=== PATIENT | female | born 1985 | race Caucasian/White ===

== ENCOUNTER 2016-08-30 21:01 | Emergency (ER) | payer SELFPAY ==
[2016-08-30 21:23] VITALS: BP 130/98
[2016-08-30 21:51] LABS: Basophils % (Auto) 0.5 % (0.0-1.8); Eosinophils % (Auto) 1.6 % (0.0-4.3); Hematocrit 38.3 % (30.3-42.9); Hemoglobin 12.6 gm/dl (10.1-14.3); Mean Corpuscular HGB Conc 33 % (30-34); Mean Corpuscular Hemoglobin 29 pg (28-32); Mean Corpuscular Volume 88 fl (79-97); Platelet Count 205 K/mm3 (140-440); Red Blood Count 4.34 M/mm3 (3.65-5.03); White Blood Count 7.1 K/mm3 (4.5-11.0)
[2016-08-30 22:11] LABS: Alanine Aminotransferase 12 units/L (7-56); Albumin 4.1 g/dL (3.9-5); Albumin/Globulin Ratio 1.4 %; Alkaline Phosphatase 71 units/L (35-129); Anion Gap 13 mmol/L; Bilirubin,Total < 0.2 mg/dL (0.1-1.2); Blood Urea Nitrogen 10 mg/dL (7-17); Calcium 8.7 mg/dL (8.4-10.2); Carbon Dioxide 27 mmol/L (22-30); Chloride 102.9 mmol/L (98-107); Glucose 97 mg/dL (65-100); Lipase 74 units/L (13-60); Potassium 4.3 mmol/L (3.6-5.0); Sodium 139 mmol/L (137-145); Total Protein 7.1 g/dL (6.3-8.2)
[2016-08-30 23:44] LABS: Bilirubin,Urine NEG (Negative); Blood,Urine SM (Negative); Ketones,Urine NEG (Negative); Leukocyte Esterase,Urine MOD (Negative); Mucus,Urine 1+ /HPF; Nitrite,Urine POS (Negative); Protein,Urine <15 mg/dL mg/dL (Negative); Urobilinogen,Urine < 2.0 mg/dL (<2.0)
--- NOTE | 2016-09-03 01:31 | ED Elopement Review ---
ED Pt Elopement review - Results review Lab results: Laboratory Tests 08/30/16 08/30/16 08/30/16 21:36 21:36 21:36 WBC 7.1 RBC 4.34 Hgb 12.6 Hct 38.3 MCV 88 MCH 29 MCHC 33 RDW 14.0 Plt Count 205 Lymph % (Auto) 39.6 H [place] % (Auto) 6.6 Eos % (Auto) 1.6 Baso % (Auto) 0.5 Lymph # 2.8 [place] # 0.5 Eos # 0.1 Baso # 0.0 Seg Neutrophils % 51.7 Seg Neutrophils # 3.7 Sodium 139 Potassium 4.3 Chloride 102.9 Carbon Dioxide 27 Anion Gap 13 BUN 10 Creatinine 0.8 Estimated GFR > 60 BUN/Creatinine Ratio 12.50 Glucose 97 Calcium 8.7 Total Bilirubin < 0.2 AST 14 ALT 12 Alkaline Phosphatase 71 Total Protein 7.1 Albumin 4.1 Albumin/Globulin Ratio 1.4 Lipase 74 H HCG, Qual Negative Urine Color Urine Turbidity Urine pH Ur Specific Temple Urine Protein Urine Glucose (UA) Urine Ketones Urine Blood Urine Nitrite Urine Bilirubin Urine Urobilinogen Ur Leukocyte Esterase Urine WBC (Auto) Urine RBC (Auto) U Epithel Cells (Auto) Urine Mucus 08/30/16 Unknown WBC RBC Hgb Hct MCV MCH MCHC RDW Plt Count Lymph % (Auto) [place] % (Auto) Eos % (Auto) Baso % (Auto) Lymph # [place] # Eos # Baso # Seg Neutrophils % Seg Neutrophils # Sodium Potassium Chloride Carbon Dioxide Anion Gap BUN Creatinine Estimated GFR BUN/Creatinine Ratio Glucose Calcium Total Bilirubin AST ALT Alkaline Phosphatase Total Protein Albumin Albumin/Globulin Ratio Lipase HCG, Qual Urine Color Yellow Urine Turbidity Cloudy Urine pH 7.0 Ur Specific Temple 1.017 Urine Protein <15 mg/dl Urine Glucose (UA) Neg Urine Ketones Neg Urine Blood Sm Urine Nitrite Pos Urine Bilirubin Neg Urine Urobilinogen < 2.0 Ur Leukocyte Esterase Mod Urine WBC (Auto) 51.0 H Urine RBC (Auto) 5.0 U Epithel Cells (Auto) 5.0 Urine Mucus 1+ - Call Back decision Pt Call Back Decision: Pt to F/U with PMD
== END 2016-08-31 03:51 | disposition left against medical advice (07) ==
LOC: ED 21:01
DX: R10.9 Unspecified abdominal pain (principal); Z53.21 Procedure and treatment not carried out due to patient leaving prior to being seen by health care provider
CPT/HCPCS: 36415; 80053; 81001; 83690; 84703; 85025

== ENCOUNTER 2021-11-12 10:40 | Inpatient (IN) | payer MEDICAID ==
[2021-11-12] MEDS ORDERED: OXYTOCIN 10 UNIT/1 ML INJ IM PRN (11:25)
[2021-11-12] MEDS ORDERED: LIDOCAINE (2%) 20 MG/1 ML VIAL 20 ML MDV INFILTRATI ONE (11:25)
[2021-11-12] MEDS ORDERED: LOPERAMIDE 2 MG CAP PO PRN (11:25)
[2021-11-12] MEDS ORDERED: miSOPROStol 200 MCG TAB PR PRN (11:25)
[2021-11-12] MEDS ORDERED: METHYLERGONOVINE MALEATE 0.2 MG/ML VIAL IM PRN (11:25)
[2021-11-12] MEDS ORDERED: CARBOPROST TROMETHAMINE 250 MCG/1 ML INJ IM PRN (11:25)
[2021-11-12] MEDS ORDERED: fentaNYL 100 MCG/2 ML INJ IV PRN ×2 (11:30→16:37)
[2021-11-12] MEDS ORDERED: ePHEDrine SULFATE 50 MG/1 ML INJ IV PRN (11:30)
[2021-11-12] MEDS ORDERED: TERBUTALINE 1 MG/1 ML INJ SUB-Q PRN (11:30)
--- NOTE | 2021-11-12 11:38 | History and Physical Report ---
History of Present Illness Date of examination: 11/12/21 Date of admission: 11/12/2021 Chief complaint: Labor Pains; My water broke at 0900 this morning History of present illness: No care; state she had a ER visit @ [place] and had a ultrasound that dates her at 29 3/7 Past History Past Medical History: no pertinent history Past Surgical History: no surgical history Social history: no significant social history - Obstetrical History : 6 Para: 4 Hx # Term Pregnancies: 4 Induced : 1 Number of Living Children: 4 Medications and Allergies Allergies Allergy/AdvReac Type Severity Reaction Status Date / Time No Known Allergies Allergy Verified 08/30/16 21:19 Active Meds: Active Medications Carboprost Tromethamine (Carboprost Tromethamine 250 Mcg/1 Ml Inj) 250 mcg IM ONCE PRN PRN Reason: Uterine Bleeding Ephedrine Sulfate (Ephedrine Sulfate 50 Mg/1 Ml Inj) 10 mg IV Q2M PRN PRN Reason: Hypotension Fentanyl (Fentanyl 100 Mcg/2 Ml Inj) 100 mcg IV Q2H PRN PRN Reason: Pain,Severe (7-10) LABOR PAIN Oxytocin/Sodium Chloride (Pitocin/Ns 30 Unit/500ml) 30 units in 500 mls @ 2 mls/hr IV TITR JENNIFER; Protocol Lactated Ringer's (Lactated Ringers) 1,000 mls @ 125 mls/hr IV DIRECT JENNIFER Oxytocin/Sodium Chloride (Pitocin/Ns 30 Unit/500ml) 30 units in 500 mls @ 40 mls/hr IV TITR JENNIFER; Protocol Ibuprofen (Ibuprofen 800 Mg Tab) 800 mg PO Q8H PRN PRN Reason: Pain, Mild (1-3) Lidocaine (Lidocaine (2%) 20 Mg/1 Ml Vial 20 Ml Mdv) 20 ml INFILTRATI ONCE ONE Stop: 11/12/21 11:26 Loperamide HCl (Loperamide 2 Mg Cap) 2 mg PO ONCE PRN PRN Reason: give with Hemabate Methylergonovine Maleate (Methylergonovine Maleate 0.2 Mg/Ml Vial) 0.2 mg IM ONCE PRN PRN Reason: Uterine Bleeding Misoprostol (Misoprostol 200 Mcg Tab) 800 mcg WA ONCE PRN PRN Reason: Uterine Bleeding Oxytocin (Oxytocin 10 Unit/1 Ml Inj) 10 unit IM ONCE PRN PRN Reason: Uterine Bleeding Terbutaline Sulfate (Terbutaline 1 Mg/1 Ml Inj) 0.25 mg SUB-Q ONCE PRN PRN Reason: Hyperstimulation/Hypertonicity Review of Systems All systems: negative - Vital Signs Vital signs: Vital Signs Pulse Pulse Ox 110 H 99 11/12/21 11:04 11/12/21 11:04 Temp Pulse Resp BP Pulse Ox 77 125/68 100 11/12/21 11:29 11/12/21 11:25 11/12/21 11:29 - Physical Exam Breasts: Positive: normal Cardiovascular: Regular rate Lungs: Positive: Clear to auscultation, Normal air movement Abdomen: Positive: normal appearance, soft, normal bowel sounds Genitourinary (Female): Positive: normal external genitalia, normal perenium Vagina: Positive: other Uterus: Positive: enlarged Anus/Rectum: Positive: normal perianal skin - Obstetrical FHR: auscultation normal Uterine Contraction Monitor Mode: External Cervical Dilatation: 9 (leaking a copious amount of thick green meconium stained fluids) Cervical Effacement Percentage: 100 station: 0 Uterine Contraction Pattern: Regular Uterine Tone Measurement Phase: Contraction Uterine Contraction Intensity: Strong/Firm Results All other labs normal. Assessment and Plan A: IUP: Gestational age unknown SROM Active Labor No Care AMA P: Admit to L&D Per Routine Orders Walk-In Labs Anticipate
--- NOTE | 2021-11-12 11:47 | Procedure Note ---
OB Delivery Note - Delivery Date of Delivery: 11/12/21 Surgeon: BARBARA NEWSOME Estimated blood loss: 200cc - Vaginal Delivery presentation: vertex Delivery position: OA Intrapartum events: no care, meconium, precipitous labor- <3hr Delivery induction: none Delivery monitor: external FHT, external uterine Route of delivery: Delivery placenta: spontaneous Delivery cord: 3 umbilical vessels Episiotomy: none Delivery laceration: none Anesthesia: none Delivery comments: Precipitous vaginal delivery of a live female infant @ 1107 on 11/12/2021 over a intact perineum without pain control. Cord clamped and cut by PRAKASH Newsome and handed directly to awaiting NICU/RESP team due to thick meconum stained fluids and unknown gestational age. Spontaneous delivery of placenta complete and intact with Zarate side presenting at 1112. Fundus is firm and midline located 5 below the U; Lochia is scant. Cord blood collected; Placenta to pathology. - A Gender: Female (Apgars and weight unavailable; Infant transferred to NICU)
[2021-11-12] MEDS ORDERED: WITCH HAZEL/ GLYCERIN PAD TP PRN (12:00)
[2021-11-12] MEDS ORDERED: diphenhydrAMINE 25 MG CAP PO PRN (12:00)
[2021-11-12] MEDS ORDERED: ACETAMINOPHEN 500 MG TAB PO PRN (12:00)
[2021-11-12] MEDS ORDERED: OXYTOCIN DRIP 30 UNITS/500 ML BAG IV SCH ×2 (12:00)
[2021-11-12] MEDS ORDERED: LANOLIN/ZINC/DIMETHICONE (LANSINOH) 7 GM TP PRN (12:00)
[2021-11-12] MEDS ORDERED: LACTATED RINGERS 1,000 ML IV SCH (12:00)
[2021-11-12] MEDS ORDERED: IBUPROFEN 800 MG TAB PO PRN (12:00)
[2021-11-12 12:43] LABS: Basophils % (Auto) 0.3 % (0.0-1.8); Eosinophils # (Auto) 0.1 K/mm3 (0.0-0.4); Eosinophils % (Auto) 0.9 % (0.0-4.3); Hematocrit 26.9 % (30.3-42.9); Hemoglobin 8.5 gm/dl (10.1-14.3); Lymphocytes # (Auto) 1.4 K/mm3 (1.2-5.4); Lymphocytes % (Auto) 15.1 % (13.4-35.0); Mean Corpuscular HGB Conc 32 % (30-34); Monocytes # (Auto) 0.4 K/mm3 (0.0-0.8); Monocytes % (Auto) 4.7 % (0.0-7.3); Platelet Count 201 K/mm3 (140-440); Red Blood Count 3.88 M/mm3 (3.65-5.03); Red Cell Distribution Width 19.1 % (13.2-15.2)
[2021-11-12 12:53] LABS: Mean Corpuscular Volume 69 fl (79-97)
[2021-11-12] MEDS: HYDROcodone/ACETAMINOPHEN 5-325 MG TAB PO PRN ×2 (12:55→21:19)
[2021-11-12 13:41] LABS: Hepatitis C Virus Antibody Non-Reactive (NonReactive)
[2021-11-12 14:12] LABS: Amphetamine Screen,Urine Negative; Benzodiazepines Screen,Urine Negative; Cocaine Screen,Urine Negative; Methadone Screen,Urine Negative; Opiate Screen,Urine Negative
[2021-11-12 14:54] LABS: Cannabinoid Screen,Urine Positive
[2021-11-12] MEDS ORDERED: NalbUPHINE 10 MG/1 ML INJ IV PRN (16:37)
[2021-11-12] MEDS ORDERED: BUTORPHANOL 2 MG/1 ML INJ IV PRN (16:37)
[2021-11-12 23:48] LABS: Hematocrit 24.6 % (30.3-42.9); Hemoglobin 7.8 gm/dl (10.1-14.3)
[2021-11-13] MEDS: PRENATAL VIT27-FE FUMARATE-FOLIC ACID VIT TAB PO SCH (10:30)
[2021-11-13] MEDS: HYDROcodone/ACETAMINOPHEN 5-325 MG TAB PO PRN ×2 (10:30→16:17)
[2021-11-13] MEDS ORDERED: MEASLES, MUMPS & RUBELLA 12,500 UNIT/0.5 ML VACCINE SUB-Q ONE (11:29)
[2021-11-13] MEDS ORDERED: TETANUS,DIPH,PERTUSS(ACELL) VACCINE 0.5 ML SYRINGE IM ONE (11:30)
--- NOTE | 2021-11-13 12:58 | Progress Note ---
Assessment and Plan PPD#1 with asymp anemia 1. Repeat CBC and give iron supplement and vitamin C 2. Routine PP care and discharge home in am if pt remains stable all questions encouraged and answered Subjective Date of service: 11/13/21 Principal diagnosis: PPD#1 with severe anemia, asymptomatic Interval history: pt has no complaints and has gone to NICU to visit her baby. Pt states her pain improved with pain med. Vag bleed less than a period. pt is bottle feeding only. Denies SOB, chest pain or palpitations Objective - Constitutional Vitals: Vital Signs - 12hr 11/13/21 11/13/21 11/13/21 10:00 10:25 10:30 Temperature 97.5 F L Pulse Rate 81 Respiratory 18 16 Rate Blood Pressure 124/82 [Right] O2 Sat by Pulse 100 Oximetry O2 Sat by Pulse 100 Oximetry [ Bilateral Throughout] General appearance: Present: no acute distress - Neck Neck: normal ROM - Respiratory Respiratory effort: normal - Breasts Breasts: deferred - Cardiovascular Rhythm: regular Extremities: No edema - Gastrointestinal General gastrointestinal: Present: soft, non-tender - Genitourinary Female genitourinary: other (Fundus firm, 1cm below umbilicus; non-tender) - Neurologic Neurologic: moves all extremities - Psychiatric Psychiatric: cooperative - Labs CBC & Chem 7: 11/12/21 23:23 Labs: Abnormal lab results 11/12/21 Range/Units 23:23 Hgb 7.8 L (10.1-14.3) gm/dl Hct 24.6 L (30.3-42.9) % Medications & Allergies - Medications Allergies/Adverse Reactions: Allergies No Known Allergies Allergy (Verified 08/30/16 21:19) Home Medications: Home Medications Medication Instructions Recorded Confirmed Last Taken Type No Known Home Medications [No 11/12/21 11/12/21 Unknown History Reported Home Medications] Active Medications: Generic Name Dose Route Start Last Admin Trade Name Freq PRN Reason Stop Dose Admin Acetaminophen 500 mg 11/12/21 12:00 Acetaminophen 500 Mg Tab PO Q6H PRN Pain, Mild (1-3) Hydrocodone Bitart/Acetaminophen 2 each 11/12/21 12:00 11/13/21 10:30 Hydrocodone/Acetaminophen 5-325 Mg Tab PO 2 each Q6H PRN Administration Pain, Moderate (4-6) Bisacodyl 10 mg 11/12/21 12:00 Bisacodyl 10 Mg Rect Supp [place] BID PRN Constipation Butorphanol Tartrate 1 mg 11/12/21 16:37 Butorphanol 2 Mg/1 Ml Inj IV Q2H PRN Pain, Moderate(4-6) LABOR PAIN Diphenhydramine HCl 25 mg 11/12/21 12:00 Diphenhydramine 25 Mg Cap PO Q6H PRN Itching Fentanyl 100 mcg 11/12/21 16:37 Fentanyl 100 Mcg/2 Ml Inj IV Q2H PRN Pain,Severe (7-10) LABOR PAIN Multi-Ingredient Ointment 1 applic 11/12/21 12:00 Lanolin/Zinc/Dimethicone (Lansinoh) 7 Gm TP PRN PRN Sore Nipples Multivitamins/Iron/Calcium 1 each 11/13/21 10:00 11/13/21 10:30 [id number] Fumarate-Folic Acid Vit Tab PO 1 each QDAY JENNIFER Administration Nalbuphine HCl 10 mg 11/12/21 16:37 Nalbuphine 10 Mg/1 Ml Inj IV Q2H PRN Pain, Moderate (4-6) Sodium Chloride 10 ml 11/12/21 12:00 Sodium Chloride 0.9% 10 Ml Flush Syringe IV 11/24/21 11:59 PRN NR Witch Swapna/Glycerin 1 each 11/12/21 12:00 Witch Swapna/ Glycerin Pad TP PRN PRN Hemorrhoid/cleansing/soothing
[2021-11-13 14:25] LABS: Basophils % (Auto) 0.3 % (0.0-1.8); Eosinophils # (Auto) 0.1 K/mm3 (0.0-0.4); Eosinophils % (Auto) 0.8 % (0.0-4.3); Hematocrit 24.5 % (30.3-42.9); Hemoglobin 7.7 gm/dl (10.1-14.3); Lymphocytes # (Auto) 2.4 K/mm3 (1.2-5.4); Lymphocytes % (Auto) 29.3 % (13.4-35.0); Mean Corpuscular HGB Conc 32 % (30-34); Monocytes # (Auto) 0.4 K/mm3 (0.0-0.8); Monocytes % (Auto) 5.2 % (0.0-7.3); Platelet Count 184 K/mm3 (140-440); Red Blood Count 3.54 M/mm3 (3.65-5.03)
[2021-11-13 14:32] LABS: Mean Corpuscular Volume 69 fl (79-97)
[2021-11-13] MEDS: ASCORBIC ACID 500 MG TAB PO SCH ×2 (16:17→21:21)
[2021-11-13] MEDS: FERROUS SULFATE 325 MG TAB PO SCH ×2 (16:17→21:14)
[2021-11-13] MEDS: DOCUSATE SODIUM 100 MG CAP PO SCH (21:14)
[2021-11-14 08:49] VITALS: BP 125/72
--- NOTE | 2021-11-14 09:33 | Progress Note ---
Assessment and Plan PPD#2 doing well 1. Discharge pt home later today. Subjective Date of service: 11/14/21 Principal diagnosis: PPD#2 with severe anemia, asymptomatic Interval history: pt has no complaints and desires to go home today. pt has visited baby multiple times in the NICU Objective - Constitutional Vitals: Vital Signs - 12hr 11/14/21 11/14/21 00:30 07:19 Temperature 98.2 F 98.1 F Pulse Rate 75 76 Respiratory 20 20 Rate Blood Pressure 125/72 Blood Pressure 127/81 [Right] O2 Sat by Pulse 99 100 Oximetry General appearance: Present: no acute distress - Respiratory Respiratory effort: normal - Breasts Breasts: deferred Extremities: No edema - Gastrointestinal General gastrointestinal: Present: soft, non-tender - Genitourinary Female genitourinary: other (Fundus firm 1cm below umbilicus. Lochia small) - Neurologic Neurologic: moves all extremities - Psychiatric Psychiatric: cooperative - Labs CBC & Chem 7: 11/13/21 13:34 Labs: Abnormal lab results 11/13/21 Range/Units 13:34 RBC 3.54 L (3.65-5.03) M/mm3 Hgb 7.7 L (10.1-14.3) gm/dl Hct 24.5 L (30.3-42.9) % MCV 69 L (79-97) fl MCH 22 L (28-32) pg RDW 19.0 H (13.2-15.2) % Medications & Allergies - Medications Allergies/Adverse Reactions: Allergies No Known Allergies Allergy (Verified 08/30/16 21:19) Home Medications: Home Medications Medication Instructions Recorded Confirmed Last Taken Type Ascorbic Acid [Vitamin C] 500 mg PO Q12H 30 Days #60 tablet 11/13/21 Unknown Rx Ferrous Sulfate [Ferrous Sulfate 324 mg PO BID 30 Days #60 11/13/21 Unknown Rx 324 MG] Ibuprofen [Motrin] 800 mg PO Q8HR PRN 21 Days #40 11/13/21 Unknown Rx tablet Active Medications: Generic Name Dose Route Start Last Admin Trade Name Freq PRN Reason Stop Dose Admin Acetaminophen 500 mg 11/12/21 12:00 Acetaminophen 500 Mg Tab PO Q6H PRN Pain, Mild (1-3) Hydrocodone Bitart/Acetaminophen 2 each 11/12/21 12:00 11/13/21 16:17 Hydrocodone/Acetaminophen 5-325 Mg Tab PO 2 each Q6H PRN Administration Pain, Moderate (4-6) Ascorbic Acid 500 mg 11/13/21 12:59 11/13/21 21:21 Ascorbic Acid 500 Mg Tab PO 500 mg BID JENNIFER Administration Bisacodyl 10 mg 11/12/21 12:00 Bisacodyl 10 Mg Rect Supp [place] BID PRN Constipation Butorphanol Tartrate 1 mg 11/12/21 16:37 Butorphanol 2 Mg/1 Ml Inj IV Q2H PRN Pain, Moderate(4-6) LABOR PAIN Diphenhydramine HCl 25 mg 11/12/21 12:00 Diphenhydramine 25 Mg Cap PO Q6H PRN Itching Docusate Sodium 100 mg 11/13/21 22:00 11/13/21 21:14 Docusate Sodium 100 Mg Cap PO 100 mg BID JENNIFER Administration Fentanyl 100 mcg 11/12/21 16:37 Fentanyl 100 Mcg/2 Ml Inj IV Q2H PRN Pain,Severe (7-10) LABOR PAIN Ferrous Sulfate 325 mg 11/13/21 12:59 11/13/21 21:14 Ferrous Sulfate 325 Mg Tab PO 325 mg BID JENNIFER Administration Multi-Ingredient Ointment 1 applic 11/12/21 12:00 Lanolin/Zinc/Dimethicone (Lansinoh) 7 Gm TP PRN PRN Sore Nipples Multivitamins/Iron/Calcium 1 each 11/13/21 10:00 11/13/21 10:30 [id number] Fumarate-Folic Acid Vit Tab PO 1 each QDAY JENNIFER Administration Nalbuphine HCl 10 mg 11/12/21 16:37 Nalbuphine 10 Mg/1 Ml Inj IV Q2H PRN Pain, Moderate (4-6) Sodium Chloride 10 ml 11/12/21 12:00 Sodium Chloride 0.9% 10 Ml Flush Syringe IV 11/24/21 11:59 PRN NR Witch Swapna/Glycerin 1 each 11/12/21 12:00 Witch Swapna/ Glycerin Pad TP PRN PRN Hemorrhoid/cleansing/soothing
[2021-11-14] MEDS: ASCORBIC ACID 500 MG TAB PO SCH (10:35)
[2021-11-14] MEDS: PRENATAL VIT27-FE FUMARATE-FOLIC ACID VIT TAB PO SCH (10:35)
[2021-11-14] MEDS: FERROUS SULFATE 325 MG TAB PO SCH (10:35)
[2021-11-14] MEDS: DOCUSATE SODIUM 100 MG CAP PO SCH (10:35)
--- NOTE | 2021-11-14 19:38 | Discharge Summary ---
Providers - Providers Date of Admission: 11/12/21 11:56 Date of discharge: 11/14/21 Attending physician: SEBASTIAN NAILS 11/14/21 07:47 Consult to Case Management [CONS] Routine Services Needed at Discharge: Business Improvement Manager Notified:: [id number] Additional Physician Instructions: positive for THC no PNC Primary care physician: MARCO WHITMAN Hospitalization Reason for admission: other ( with meconium stained fluid, unknown dates, no care) Episiotomy: none Laceration: none complications: none Discharge diagnosis: other (Gestational age presumed by NICU, baby with meconium stained fluid and in nicu) [place] baby: female Hospital course: preg with unknown dates and SROM with meconium stained fluid and precipitous delivery with baby in the NICU. care uneventful. Pt remained with asymptomatic anemia post delivery. Condition at discharge: Good Disposition: 01 HOME / SELF CARE / HOMELESS Plan - Discharge Medications Prescriptions: Ferrous Sulfate [Ferrous Sulfate 324 MG] 324 mg PO BID 30 Days #60 Ibuprofen [Motrin] 800 mg PO Q8HR PRN 21 Days #40 tablet PRN Reason: Pain, Moderate (4-6) Ascorbic Acid [Vitamin C] 500 mg PO Q12H 30 Days #60 tablet - Provider Discharge Summary Additional instructions: [] Smoking cessation referral if applicable(refer to patient education folder for contact #) [] Refer to [facility]'s [facility] Booklet Call your doctor immediately for: * Fever > 100.5 * Heavy vaginal bleeding ( >1 pad per hour) * Severe persistent headache * Shortness of breath * Reddened, hot, painful area to leg or breast * Drainage or odor from incision. * Keep incision clean and dry at all times and follow doctor's instructions regarding bathing/showering - Follow up plan Follow up: MARCO WHITMAN MD [Primary Care Provider] - 7 Days Forms: [facility] Discharge Summary, Discharge Signature Page
== END 2021-11-14 11:05 | disposition home or self-care (01) | DRG 775 ==
LOC: TRG 10:40 → LD 11:04 → TRG 11:55 → LD 11:56 → OB 13:37
PROVIDERS: ADMIT Obstetrics & Gynecology; ATTEND Obstetrics & Gynecology
PROC: 10E0XZZ Delivery of Products of Conception, External Approach (ICD-10-PCS; principal; 2021-11-12)
PROC: 3E0234Z Introduction of Serum, Toxoid and Vaccine into Muscle, Percutaneous Approach (ICD-10-PCS; 2021-11-13)
PROC: 3E0134Z Introduction of Serum, Toxoid and Vaccine into Subcutaneous Tissue, Percutaneous Approach (ICD-10-PCS; 2021-11-13)
DX: O60.14X0 Preterm labor third trimester with preterm delivery third trimester, not applicable or unspecified (principal); Z20.822 Contact with and (suspected) exposure to COVID-19; O62.3 Precipitate labor; O77.0 Labor and delivery complicated by meconium in amniotic fluid; Z3A.36 36 weeks gestation of pregnancy; Z37.0 Single live birth; O90.81 Anemia of the puerperium; Z23 Encounter for immunization
CPT/HCPCS: 36415; 80307; 85014; 85018; 85025; 86592; 86706; 86762; 86803; 86850; 86900; 86901; 87806; 88307; G0378; J2590; U0003

== ENCOUNTER 2021-11-25 15:57 | Emergency (ER) | payer MEDICAID ==
[2021-11-25] MEDS ORDERED: ONDANSETRON 4 MG/2 ML INJ IV ONE (16:17)
--- NOTE | 2021-11-25 16:36 | Emergency Department Report ---
ED General Adult HPI - General Chief complaint: Seizure Stated complaint: SEIZURE PUI?: No Time Seen by Provider: 11/25/21 16:09 Source: patient, EMS Mode of arrival: Stretcher Limitations: No Limitations - History of Present Illness Initial comments: This is a 36-year-old female with no past medical history recently delivered on November 12 brought in by EMS with concerns of 2 episodes of tonic clonic seizures; no medication was given well on route. On arrival patient was confused and postictal state with the patient being agitated; 1 mg Ativan was given. During my evaluation patient is aware that she is in the hospital but was too drowsy for me to ask any additional questions. Patient denies any discomfort. Looking through the entire [facility] [facility] vital signs I do not see any blood pressure greater than 140/190 therefore I highly doubt this is preeclampsia or eclampsic seizure. - Related Data Previous Rx's Medication Instructions Recorded Last Taken Type Ascorbic Acid [Vitamin C] 500 mg PO Q12H 30 Days #60 tablet 11/13/21 Unknown Rx Ferrous Sulfate [Ferrous Sulfate 324 mg PO BID 30 Days #60 11/13/21 Unknown Rx 324 MG] Ibuprofen [Motrin] 800 mg PO Q8HR PRN 21 Days #40 11/13/21 Unknown Rx tablet levETIRAcetam [Keppra] 500 mg PO Q12H 30 Days #60 11/26/21 Unknown Rx Allergies Allergy/AdvReac Type Severity Reaction Status Date / Time No Known Allergies Allergy Verified 11/25/21 16:10 ED Review of Systems ROS: Stated complaint: SEIZURE Other details as noted in HPI Comment: Unobtainable due to pts medical conditions ED Past Medical Hx - Past Medical History Previous Medical History?: No Hx Congestive Heart Failure: No Hx Diabetes: No Hx Deep Vein Thrombosis: No Hx Renal Disease: No Hx Sickle Cell Disease: No (sickle trait) Hx Seizures: No Hx Asthma: No Hx COPD: No Hx HIV: No - Social History Smoking Status: Never Smoker - Medications Home Medications: Home Medications Medication Instructions Recorded Confirmed Last Taken Type Ascorbic Acid [Vitamin C] 500 mg PO Q12H 30 Days #60 tablet 11/13/21 Unknown Rx Ferrous Sulfate [Ferrous Sulfate 324 mg PO BID 30 Days #60 11/13/21 Unknown Rx 324 MG] Ibuprofen [Motrin] 800 mg PO Q8HR PRN 21 Days #40 11/13/21 Unknown Rx tablet levETIRAcetam [Keppra] 500 mg PO Q12H 30 Days #60 11/26/21 Unknown Rx ED Physical Exam - General Limitations: No Limitations, Altered Mental Status General appearance: in distress, postictal - Head Head exam: Present: atraumatic, normocephalic, normal inspection - Eye Eye exam: Present: normal appearance, PERRL, EOMI Pupils: Present: normal accommodation - ENT ENT exam: Present: normal exam, mucous membranes moist - Neck Neck exam: Present: normal inspection, full ROM - Respiratory Respiratory exam: Present: normal lung sounds bilaterally - Cardiovascular Cardiovascular Exam: Present: regular rate, normal rhythm - GI/Abdominal GI/Abdominal exam: Present: soft. Absent: distended, tenderness, guarding, rebound - Extremities Exam Extremities exam: Present: normal inspection, full ROM - Back Exam Back exam: Present: normal inspection, full ROM - Neurological Exam Neurological exam: Present: alert, altered, CN II-XII intact ED Course Vital Signs 11/25/21 11/25/21 11/25/21 16:08 16:31 16:45 Temperature 97.6 F Pulse Rate 130 H 126 H Respiratory 18 22 Rate Blood Pressure 121/76 109/77 Blood Pressure 154/90 [Left] O2 Sat by Pulse 100 98 Oximetry 11/25/21 11/25/21 11/25/21 17:01 17:15 17:31 Temperature Pulse Rate 112 H 104 H 84 Respiratory 15 18 12 Rate Blood Pressure 109/77 116/74 121/72 Blood Pressure [Left] O2 Sat by Pulse 97 97 Oximetry 11/25/21 11/25/21 11/25/21 17:45 18:01 18:15 Temperature Pulse Rate 85 94 H 84 Respiratory 13 12 10 L Rate Blood Pressure 111/69 123/76 124/85 Blood Pressure [Left] O2 Sat by Pulse 99 100 Oximetry 11/25/21 11/25/21 11/25/21 18:30 18:45 19:01 Temperature Pulse Rate 89 Respiratory 13 Rate Blood Pressure 124/85 150/54 Blood Pressure [Left] O2 Sat by Pulse 96 99 95 Oximetry 11/25/21 11/25/21 11/25/21 19:15 19:31 19:45 Temperature Pulse Rate Respiratory Rate Blood Pressure 138/82 154/90 154/90 Blood Pressure [Left] O2 Sat by Pulse 96 97 95 Oximetry 11/25/21 11/25/21 11/25/21 20:01 20:15 20:31 Temperature Pulse Rate Respiratory Rate Blood Pressure 136/63 136/63 165/88 Blood Pressure [Left] O2 Sat by Pulse 99 98 97 Oximetry 11/25/21 20:45 Temperature Pulse Rate Respiratory Rate Blood Pressure 165/88 Blood Pressure [Left] O2 Sat by Pulse 96 Oximetry - Reevaluation(s) Reevaluation #1: 11/25/21 17:23 Received critical value of CO 6; patient have high anion gap metabolic acidosis; will order additional labs. 11/25/21 20:55 I HAVE ORDERED 2L OF LR AND INFORMED BOTH RN AND CHARGE NUSRSE. PENDING RN TO HANG IT AND I WILL RECHECK LAB LATER. Reevaluation #2: 11/25/21 23:57 PREVIOUS HAGMA LIKELY DUE TO LACTIC ACID FROM SEIZURE. SINCE IN THE ER, PATIENT HAS NOT HAD ANY SEIZURE AND IS ALERT AND ORIENTED X4. HIGHLY DOUBT PT'S SEIZURE IS DUE TO RELATED (PRE-ECLAMPSIA/ECLAMPSIA) RECORDED BLOOD PRESSURE THROUGHOUT HER IS NORMAL AND EVEN AFTER DELIVERY AND SINCE ER, SHE HAS NOT HAD ANY SEIZURE AND DIDN'T RECEIVE ANY MAGNESIUM SULFATE. THEREFORE, I WILL START HER ON KEPRRA, 500MG BID AND SHE IS TO FOLLOW UP WITH NEUROLOGIST OF HER CHOICE WITHIN 3 DAYS. ED Medical Decision Making - Lab Data Result diagrams: 11/25/21 16:25 11/25/21 23:08 Critical care attestation.: If time is entered above; I have spent that time in minutes in the direct care of this critically ill patient, excluding procedure time. ED Disposition Clinical Impression: Seizure, High anion gap metabolic acidosis Disposition: 01 HOME / SELF CARE / HOMELESS Is pt being admited?: No Does the pt Need Aspirin: No Condition: Stable Instructions: Seizure, Adult, [id number] Additional Instructions: MAKE A FOLLOW UP APPOINTMENT WITH YOUR PRIMARY CARE PROVIDER AND ALSO A NEUROLOGIST OF YOUR CHOICE TO BE SEEN WITHIN 3 DAYS. Prescriptions: levETIRAcetam [Keppra] 500 mg PO Q12H 30 Days #60 Referrals: PRIMARY CARE, [Primary Care Provider] - 3-5 Days Time of Disposition: 00:01
--- NOTE | 2021-11-25 16:39 | XRay Report ---
CHEST 1 VIEW 11/25/2021 3:31 PM INDICATION / CLINICAL INFORMATION: seizure. COMPARISON: None available. FINDINGS: SUPPORT DEVICES: None. HEART / MEDIASTINUM: Normal heart size. Large hiatal hernia. LUNGS / PLEURA: No significant pulmonary or pleural abnormality. No pneumothorax. ADDITIONAL FINDINGS: No significant additional findings. IMPRESSION: 1. No acute findings. 2. Large hiatal hernia. Signer Name: Andrea Pruett MD Signed: 11/25/2021 4:35 PM Workstation Name: [id number]
[2021-11-25 16:45] LABS: Hematocrit 34.7 % (30.3-42.9); Hemoglobin 10.4 gm/dl (10.1-14.3); Mean Corpuscular HGB Conc 30 % (30-34); Mean Corpuscular Volume 74 fl (79-97); Platelet Count 340 K/mm3 (140-440); Red Blood Count 4.67 M/mm3 (3.65-5.03); Red Cell Distribution Width 20.7 % (13.2-15.2)
[2021-11-25 16:46] LABS: Mean Platelet Volume 7.8 fl (6-12)
[2021-11-25 16:50] LABS: Basophils # (Auto) 0.1 K/mm3 (0.0-0.1); Basophils % (Auto) 0.6 % (0.0-1.8); Eosinophils # (Auto) 0.2 K/mm3 (0.0-0.4); Eosinophils % (Auto) 1.7 % (0.0-4.3); Lymphocytes # (Auto) 2.9 K/mm3 (1.2-5.4); Lymphocytes % (Auto) 29.8 % (13.4-35.0); Monocytes # (Auto) 0.3 K/mm3 (0.0-0.8); Monocytes % (Auto) 3.1 % (0.0-7.3)
[2021-11-25 16:59] LABS: Alanine Aminotransferase 13 units/L (7-56); Albumin 4.3 g/dL (3.9-5); BUN/Creatinine Ratio 6; Blood Urea Nitrogen 7 mg/dL (7-17); Calcium 9.3 mg/dL (8.4-10.2); Hemolysis Index 5
[2021-11-25] MEDS ORDERED: levETIRAcetam 1,500 MG in DEXTROSE 5% IN WATER 100 ML IV SCH (17:00)
[2021-11-25] MEDS ORDERED: LACTATED RINGERS 1,000 ML IV ONE ×3 (18:37→22:20)
--- NOTE | 2021-11-25 19:07 | Cat Scan Report ---
CT BRAIN: 11/25/2021 INDICATION / CLINICAL INFORMATION: seizure. COMPARISON: None available. FINDINGS: BRAIN/INTRACRANIAL STRUCTURES: Unenhanced CT images of the brain demonstrate no evidence of acute abn ormality. Ventricles and sulci are normal in size and shape. There is no evidence of ischemic injury, hemorrhage, or mass. There are no abnormal extra-axial fluid collections. EXTRACRANIAL STRUCTURES: Unremarkable. IMPRESSION: No acute abnormality. All CT scans at this location are performed using dose reduction to ALARA by means of automated expos ure control. Signer Name: Cruzito Moreau MD Signed: 11/25/2021 7:03 PM Workstation Name: [id number]
[2021-11-25 23:41] LABS: Blood Urea Nitrogen 6 mg/dL (7-17); Calcium 8.7 mg/dL (8.4-10.2); Hemolysis Index 2
[2021-11-25 23:51] LABS: BUN/Creatinine Ratio 9
[2021-11-26 00:58] VITALS: BP 174/81
== END 2021-11-26 00:58 | disposition home or self-care (01) ==
LOC: ED 15:57
DX: R56.9 Unspecified convulsions (principal); E87.2 Acidosis
CPT/HCPCS: 36415; 70450; 71045; 80048; 80053; 82140; 82693; 83735; 85025; 96361; 96365; 96375; 99285; J1953; J2405; J7060; J7120; 80320; G0480